=== PATIENT | male | born 1955 | race Caucasian/White ===

== ENCOUNTER 2018-11-10 13:53 | Emergency (ER) | payer BC, MEDICARE ==
--- NOTE | 2018-11-10 15:30 | EDM.PDOC ---
ED HPI GENERAL MEDICAL PROBLEM - General Chief Complaint: Respiratory Problem Stated Complaint: RASPY CHEST/CHEST PAINS Time Seen by Provider: 11/10/18 15:15 Source of Information: Reports: Patient, Old Records, RN History Limitations: Reports: No Limitations - History of Present Illness INITIAL COMMENTS - FREE TEXT/NARRATIVE: 63 yo male describes what sounds like influenza over the past week with fever. The fever has since passed and now he has a whistling in his chest with breathing or coughing. No rhinorrhea. Cough was productive, no longer. has similar sx's. Onset: Gradual Onset Date: 11/03/18 Duration: Week(s): (1), Constant Location: Reports: Chest Quality: Reports: Ache Severity: Mild Improves with: Reports: None Worsens with: Reports: Other (deep breathing or coughing) Context: Reports: Other (see HPI) Associated Symptoms: Reports: Cough, Shortness of Breath (minimal). Denies: Fever/Chills Treatments [employer]: Reports: Other (see below) (none) - Related Data Allergies Allergy/AdvReac Type Severity Reaction Status Date / Time azithromycin Allergy Headache Verified 11/10/18 14:23 lisinopril Allergy Cannot Verified 11/10/18 14:23 Remember Home Meds: Home Meds Baby Aspirin 81 mg PO DAILY 01/01/14 [History] Lantis 48 units SQ DAILY 01/01/14 [History] Metformin 1,000 mg PO BID 01/01/14 [History] Novolog Flexpen 10 - 24 unit SQ ASDIRECTED 01/01/14 [History] Simvastatin 80 mg PO BEDTIME 01/01/14 [History] Fluocinonide [Lidex 0.05% Crm] 30 gm TOP BID 01/16/14 [History] Losartan [Cozaar] 0.5 tab PO DAILY 01/16/14 [History] Triamcinolone Acetonide [Kenalog 0.1% Crm] PRN 01/16/14 [History] Metoprolol Succinate [Toprol Xl] 1 tab PO DAILY 11/10/18 [History] Past Medical History Cardiovascular History: Reports: Arrhythmia, High Cholesterol, Hypertension Endocrine/Metabolic History: Reports: Diabetes, Type II - Past Surgical History Cardiovascular Surgical History: Reports: Coronary Artery Bypass Musculoskeletal Surgical History: Reports: Shoulder Surgery Social & Family History - Tobacco Use Smoking Status *Q: Never Smoker ED ROS GENERAL - Review of Systems Review Of Systems: See Below Constitutional: Reports: No Symptoms HEENT: Reports: No Symptoms Respiratory: Reports: Shortness of Breath (minimal), Wheezing (?), Cough. Denies: Pleuritic Chest Pain, Sputum, Hemoptysis Cardiovascular: Reports: No Symptoms Endocrine: Reports: No Symptoms GI/Abdominal: Reports: No Symptoms : Reports: No Symptoms Musculoskeletal: Reports: No Symptoms Skin: Reports: No Symptoms Neurological: Reports: No Symptoms ED EXAM, GENERAL - Physical Exam Exam: See Below Exam Limited By: No Limitations General Appearance: Alert, WD/WN, No Apparent Distress Eye Exam: Bilateral Eye: Normal Inspection Ears: Normal External Exam, Normal Canal, Hearing Grossly Normal, Normal TMs Ear Exam: Bilateral Ear: Auricle Normal, Canal Normal, TM normal Nose: Normal Inspection, Normal Mucosa, No Blood Throat/Mouth: Normal Inspection, Normal Lips, Normal Oropharynx, Normal Voice, No Airway Compromise Head: Atraumatic, Normocephalic Neck: Normal Inspection Respiratory/Chest: No Respiratory Distress, No Accessory Muscle Use, Chest Non- Tender, Rhonchi (throughout both lung duggan). No: Decreased Breath Sounds, Stridor, Accessory Muscle Use, Retractions Cardiovascular: Regular Rate, Rhythm, No Edema Extremities: Normal Inspection Neurological: Alert, Oriented, CN II-XII Intact, Normal Cognition, No Motor/ Sensory Deficits Psychiatric: Normal Affect, Normal Mood Skin Exam: Warm, Dry, Intact, Normal Color, No Rash Lymphatic: No Adenopathy Course - Vital Signs Last Recorded V/S: Last Vital Signs Temp 37.1 C 11/10/18 14:31 Pulse 83 11/10/18 14:31 Resp 11 L 11/10/18 14:31 BP 160/83 H 11/10/18 14:31 Pulse Ox 93 L 11/10/18 14:31 Departure - Departure Time of Disposition: 15:30 Disposition: Home, Self-Care 01 Condition: Fair Clinical Impression: Influenza-like illness - Discharge Information *PRESCRIPTION DRUG MONITORING PROGRAM REVIEWED*: No *COPY OF PRESCRIPTION DRUG MONITORING REPORT IN PATIENT IVETT: No Instructions: Acute Bronchitis, Adult, [id number] Referrals: PCP,None [Primary Care Provider] - Additional Instructions: Take doxycycline every 12 hrs until gone. Do not take with dairy or calcium products. Take acetaminophen as needed. Recheck in the clinic later in the week.
== END 2018-11-10 15:40 | disposition home or self-care (01) ==
LOC: JP.ED 13:53
DX: R09.89 Other specified symptoms and signs involving the circulatory and respiratory systems (principal); E78.00 Pure hypercholesterolemia, unspecified; I10 Essential (primary) hypertension; E11.9 Type 2 diabetes mellitus without complications; Z88.1 Allergy status to other antibiotic agents; Z88.8 Allergy status to other drugs, medicaments and biological substances; Z79.82 Long term (current) use of aspirin; Z79.899 Other long term (current) drug therapy
CPT/HCPCS: 99285